=== PATIENT | female | born 1970 | race Caucasian/White ===

== ENCOUNTER 2017-01-03 17:13 | Emergency (ER) | payer OTHER ==
[~2017-01-03] VITALS: Ht 170.2 cm; Wt 83.9 kg
[2017-01-03 17:16] VITALS: BP 141/95
--- NOTE | 2017-01-03 17:28 | PHYS DOC ---
Past Medical History Past Medical History: Anxiety, Fibromyalgia, Hypertension, Other Additional Past Medical Histor: INSOMNIA Past Surgical History: Cholecystectomy, , Hysterectomy, Other Additional Past Surgical Histo: BREAST REDUCTION Additional Information: 0.25 PPD Alcohol Use: Occasionally Drug Use: None Adult General Chief Complaint Chief Complaint: EYE PROBLEMS HPI HPI Patient is a 46 year old female presents emergency department complaint of left eye redness, swelling, irritation and pain that began earlier today. Patient states that she "window and felt a "whoosh" of air make contact with her eye. She denies any known direct contact with solid item. She denies wearing contacts. She denies any high risk such as grinding metal on metal, hammering or vehicles. She denies any long-standing history of any problems with her eye. She did not take any Benadryl prior to coming to the emergency department. Review of Systems Review of Systems Constitutional: Denies fever or chills [] Eyes: Denies change in visual acuity, redness, or eye pain [] HENT: Denies nasal congestion or sore throat [] Respiratory: Denies cough or shortness of breath [] Cardiovascular: No additional information not addressed in HPI [] GI: Denies abdominal pain, nausea, vomiting, bloody stools or diarrhea [] : Denies dysuria or hematuria [] Musculoskeletal: Denies back pain or joint pain [] Integument: Denies rash or skin lesions [] Neurologic: Denies headache, focal weakness or sensory changes [] Endocrine: Denies polyuria or polydipsia [] Current Medications Current Medications Current Medications Medications (Trade) Dose Ordered Sig/[facility] Start Time Stop Time Status Last Admin Dose Admin Fluorescein Sodium (Ful-Vi) 1 strip 1X ONCE 01/03/17 17:30 01/03/17 17:31 DC 01/03/17 17:30 1 STRIP Tetracaine HCl (Tetracaine) 1 drop 1X ONCE 01/03/17 17:30 01/03/17 17:31 DC 01/03/17 17:30 1 DROP Allergies Allergies Allergies Coded Allergies Type Severity Reaction Last Updated Verified hydrocodone Allergy Intermediate 01/03/17 Yes lisinopril Allergy Intermediate 01/03/17 Yes Physical Exam Physical Exam Constitutional: Well developed, well nourished,mild distress, non-toxic appearance. HENT: Normocephalic, atraumatic, bilateral external ears normal, oropharynx moist, no oral exudates, nose normal. [] Eyes: Periorbital region without any ecchymosis or discoloration of the skin. Both upper lower lids are slightly swollen. Tear film is clear. There is moderate conjunctival injection. Extraocular motions are intact and 6 cardinal positions of gaze. Anterior chamber is deep, clear and quiet. Pupils are equal round reactive to light and accommodation. Neck: Normal range of motion, no tenderness, supple, no stridor. [] Cardiovascular:Heart rate regular rhythm, no murmur [] Lungs & Thorax: Bilateral breath sounds clear to auscultation [] Abdomen: Bowel sounds normal, soft, no tenderness, no masses, no pulsatile masses. [] Skin: Warm, dry, no erythema, no rash. [] Back: No tenderness, no CVA tenderness. [] Extremities: No tenderness, no cyanosis, no clubbing, ROM intact, no edema. [] Neurologic: Alert and oriented X 3, normal motor function, normal sensory function, no focal deficits noted. [] Psychologic: Affect normal, judgement normal, mood normal. [] Current Patient Data Vital Signs Vital Signs Date Time Temp Pulse Resp B/P Pulse Ox O2 Delivery O2 Flow Rate FiO2 01/03/17 17:16 97.8 99 16 141/95 97 Room Air 97.8 EKG EKG [] Radiology/Procedures Radiology/Procedures Procedure note: Right eye was anesthetized with tetracaine ophthalmic solution. Fluorescein stain was introduced to the lateral canthus of the eye and observed with a Wood's lamp. There were no corneal abrasions or dendritic lesions. There is no evidence of retained foreign bodies. Both upper and lower eyelids were everted. There is a very small abrasion to the sclera near the medial canthus. Course & Med Decision Making Course & Med Decision Making Pertinent Labs and Imaging studies reviewed. (See chart for details) [] Dragon Disclaimer Dragon Disclaimer This electronic medical record was generated, in whole or in part, using a voice recognition dictation system. Departure Departure Impression: Primary Impression: Abrasion of sclera of left eye Disposition: HOME, SELF-CARE Condition: GOOD Additional Instructions: 1. You have a small abrasion (scratch) on the sclera of your left eye. This is not involving the cornea. 2. Take the medication as prescribed. 3. [id number] Benadryl every 6-8 hours for the itching and swelling. Apply cool compresses every 2 hours for 20-30 minutes at a time. Avoid rubbing your eye is much as possible. 4. Follow-up with your primary care doctor to get back home. Scripts Hydrocodone/Apap 5-325 ([place] 5-325 Tablet)1 Each Tablet1 Tab PO PRN Q6HRS PRN PAIN #10 TAB Ref 0 Prov:RON JEFFERSON 01/03/17 Polymyxin B Sulf/Trimethoprim (Polytrim Eye Drops)10 Ml Drops2 Drop OS Q6HRS scleral abrasion 7 Days Prov:RON JEFFERSON 01/03/17 RON JEFFERSON Jan 03, 2017 17:28
[2017-01-03] MEDS ORDERED: FLUORESCEIN OPHTH TEST STRIP. OS ONE (17:30)
[2017-01-03] MEDS ORDERED: TETRACAINE 0.5% OPHTH SOLUTION 4ML BOTTLE. OS ONE (17:30)
[2017-01-03] MEDS ORDERED: HYDR-971 PO (17:41)
[2017-01-03] MEDS ORDERED: POLY10DR OS (17:41)
== END 2017-01-03 17:57 | disposition home or self-care (01) ==
LOC: ER 17:13
DX: S00.212A Abrasion of left eyelid and periocular area, initial encounter (principal); I10 Essential (primary) hypertension; M79.7 Fibromyalgia; G47.00 Insomnia, unspecified; Z88.6 Allergy status to analgesic agent; Z88.8 Allergy status to other drugs, medicaments and biological substances; F17.200 Nicotine dependence, unspecified, uncomplicated; X58.XXXA Exposure to other specified factors, initial encounter; Y93.89 Activity, other specified; Y99.8 Other external cause status; Y92.89 Other specified places as the place of occurrence of the external cause
CPT/HCPCS: 99283